=== PATIENT | female | born 1970 | race Caucasian/White ===

== ENCOUNTER → 2019-01-04 | Outpatient (CLI) | payer OTHER ==
--- NOTE | 2019-01-08 10:32 | MM ---
Reason for exam: screening (asymptomatic). Last mammogram was performed 1 year and 11 months ago. History: Took hormonal contraceptives for 3 years. Physical Findings: A clinical breast exam by your physician is recommended on an annual basis and results should be correlated with mammographic findings. MG Screening Mammo w CAD Bilateral CC and MLO view(s) were taken. Prior study comparison: January 20, 2017, bilateral MG 3d screening mammo w/cad. There are scattered fibroglandular densities. No suspicious abnormality. No significant changes when compared with prior studies. ASSESSMENT: Negative, BI-RAD 1 RECOMMENDATION: Routine screening mammogram of both breasts in 1 year.
== END | disposition home or self-care (01) ==
LOC: RADMAMWWP 15:45
PROVIDERS: ATTEND Family Medicine
DX: Z12.31 Encounter for screening mammogram for malignant neoplasm of breast (principal)
CPT/HCPCS: 77067

== ENCOUNTER → 2020-01-25 | Outpatient (CLI) | payer OTHER ==
--- NOTE | 2020-01-27 10:23 | US ---
EXAMINATION TYPE: US abdomen complete DATE OF EXAM: 01/25/2020 COMPARISON: NONE CLINICAL HISTORY: R94.5 Elevated Liver Enzymes. abn labs, no symptoms EXAM MEASUREMENTS: Liver Length: 19.4 cm Gallbladder Wall: 0.2 cm CBD: 0.5 cm Spleen: 10.3 cm Right Kidney: 10.7 x 4.6 x 4.9 cm Left Kidney: 10.9 x 5.1 x 5.8 cm Pancreas: wnl Liver: enlarged and difficult to penetrate Gallbladder: wnl Evidence for sonographic Connor's sign: no CBD: wnl Spleen: wnl Right Kidney: wnl Left Kidney: wnl Upper IVC: wnl Abd Aorta: wnl IMPRESSION: 1. Hepatomegaly with mild fatty infiltration.
== END | disposition home or self-care (01) ==
LOC: RADUSWWP 08:15
PROVIDERS: ATTEND Family Medicine
DX: R16.0 Hepatomegaly, not elsewhere classified (principal); K76.0 Fatty (change of) liver, not elsewhere classified
CPT/HCPCS: 76700

== ENCOUNTER → 2020-04-14 | Outpatient (CLI) | payer OTHER ==
--- NOTE | 2020-04-16 08:10 | MM ---
Reason for exam: screening (asymptomatic). Last mammogram was performed 1 year and 3 months ago. History: Patient is nulliparous. Took hormonal contraceptives for 3 years. Physical Findings: A clinical breast exam by your physician is recommended on an annual basis and results should be correlated with mammographic findings. MG 3D Screening Mammo W/Cad Bilateral CC, MLO, and XCCL view(s) were taken. Prior study comparison: January 04, 2019, bilateral MG screening mammo w CAD. January 20, 2017, bilateral MG 3d screening mammo w/cad. There are scattered fibroglandular densities. No significant changes when compared with prior studies. ASSESSMENT: Benign, BI-RAD 2 RECOMMENDATION: Routine screening mammogram of both breasts in 1 year.
== END ==
LOC: RADMAMWWP 15:52
PROVIDERS: ATTEND Family Medicine
DX: Z12.31 Encounter for screening mammogram for malignant neoplasm of breast (principal)
CPT/HCPCS: 77063; 77067

== ENCOUNTER → 2021-04-15 | Outpatient (CLI) | payer OTHER ==
--- NOTE | 2021-04-16 14:45 | MM ---
Reason for exam: screening (asymptomatic). Last mammogram was performed 1 year ago. History: Patient is nulliparous. Took hormonal contraceptives for 3 years. Physical Findings: A clinical breast exam by your physician is recommended on an annual basis and results should be correlated with mammographic findings. MG 3D Screening Mammo W/Cad Bilateral CC and MLO view(s) were taken. XCCL view(s) were taken of the left breast. Prior study comparison: April 14, 2020, bilateral MG 3d screening mammo w/cad. January 04, 2019, bilateral MG screening mammo w CAD. There are scattered fibroglandular densities. No significant changes when compared with prior studies. ASSESSMENT: Benign, BI-RAD 2 RECOMMENDATION: Routine screening mammogram of both breasts in 1 year.
== END | disposition home or self-care (01) ==
LOC: RADMAMWWP 16:05
PROVIDERS: ATTEND Family Medicine
DX: Z12.31 Encounter for screening mammogram for malignant neoplasm of breast (principal)
CPT/HCPCS: 77063; 77067

== ENCOUNTER → 2021-11-11 | Outpatient (CLI) | payer OTHER ==
--- NOTE | 2021-11-11 16:14 | XR ---
EXAMINATION TYPE: XR hand complete RT DATE OF EXAM: 11/11/2021 COMPARISON: 10/01/2021 HISTORY: Strain and pain across metacarpals TECHNIQUE: 3 view right hand FINDINGS: No acute fractures or dislocations are evident. Mild diffuse joint space narrowing is prese nt. A couple of small smooth bordered calcifications are at the distal interphalangeal joint space of the right index finger, present previously. Soft tissues appear normal. Significant soft tissue swel ling is not evident. There is some subtle prominence over the dorsal distal metacarpal region on the lateral view. IMPRESSION: 1. No acute osseous abnormality. 2. Diffuse degenerative joint changes.
== END | disposition home or self-care (01) ==
LOC: RADXRMAIN 15:51
PROVIDERS: ATTEND Emergency Medicine
DX: M19.041 Primary osteoarthritis, right hand (principal)

== ENCOUNTER 2022-02-26 11:40 | Day surgery (SDC) | payer OTHER ==
[2022-02-23 16:06] VITALS: BMI 39.1
[~2022-02-26 11:40] MED LIST: LACTATED RINGERS 1,000 ML IV SCH
[2022-02-26 13:17] VITALS: TEMP 96.4
[2022-02-26] MEDS ORDERED: MIDAZOLAM 2 MG/2 ML VIAL ONE (13:58)
[2022-02-26] MEDS ORDERED: LIDOCAINE 2% INJ 20 MG/ML (2 ML VIAL) ONE (13:58)
[2022-02-26] MEDS ORDERED: PROPOFOL 10 MG/ML 20 ML VIAL IV ONE (13:58)
--- NOTE | 2022-02-26 14:21 | P.PCN ---
Date of Procedure: 02/26/22 Procedure(s) Performed: BRIEF HISTORY: Patient is a 51-year-old pleasant white female scheduled for an elective colonoscopy as a part of screening for colon cancer. PROCEDURE PERFORMED: Colonoscopy. PREOPERATIVE DIAGNOSIS: Screening for colon cancer. IV sedation per Anesthesia. PROCEDURE: After informed consent was obtained, the patient, was brought into the endoscopy unit. IV sedation was administered by Anesthesia under continuous monitoring. Digital rectal examination was normal. Initially the Olympus CF-160 flexible video colonoscope was then inserted in the rectum, gradually advanced into the cecum without any difficulty. Careful examination was performed as the scope was gradually being withdrawn. Ileocecal valve and the appendiceal orifice were visualized and appeared normal. Prep was excellent. Mucosa of the cecum, ascending colon, transverse colon, descending colon, sigmoid colon, and rectum appeared normal. Scattered sigmoid diverticulosis. Retroflexion was performed in the rectum and no lesions were seen. The patient tolerated the procedure well. IMPRESSION: Normal-appearing colon from rectum to cecum with no evidence of colorectal neoplasia . Scattered sigmoid diverticulosis. RECOMMENDATIONS: Findings of this examination were discussed with the patient less her family. She was advised to have a repeat screen colonoscopy in 10 years..
[2022-02-26 14:25] VITALS: RESP 16
[2022-02-26 14:38] VITALS: BP 140/96; PULSE 93
== END 2022-02-26 14:59 | disposition home or self-care (01) ==
LOC: ORWHC2ENDO 11:40
PROVIDERS: ATTEND Internal Medicine Gastroenterology
DX: Z12.11 Encounter for screening for malignant neoplasm of colon (principal); K57.30 Diverticulosis of large intestine without perforation or abscess without bleeding; I10 Essential (primary) hypertension; J45.909 Unspecified asthma, uncomplicated; Z79.51 Long term (current) use of inhaled steroids; E07.9 Disorder of thyroid, unspecified; Z79.890 Hormone replacement therapy; F41.9 Anxiety disorder, unspecified; K75.9 Inflammatory liver disease, unspecified; Z79.1 Long term (current) use of non-steroidal anti-inflammatories (NSAID); Z79.891 Long term (current) use of opiate analgesic; Z79.899 Other long term (current) drug therapy
CPT/HCPCS: 45378; J2250; J2704; J2001; 81025

== ENCOUNTER → 2023-03-03 | Outpatient (CLI) | payer OTHER ==
--- NOTE | 2023-03-04 20:31 | MM ---
Reason for Exam: Screening (asymptomatic). Last mammogram was performed 1 year(s) and 10 month(s) ago. Patient History: Menarche at age 16. Patient has no children. Postmenopausal. Patient used Hormonal Contraceptives for 3 years. Risk Values: Maranda 5 year model risk: 1.0%. NCI Lifetime model risk: 9.1%. Prior Study Comparison: 01/04/2019 Bilateral Screening Mammogram, [facility]. 04/14/2020 Bilateral Screening Mammogram, [facility]. 04/15/2021 Bilateral Screening Mammogram, [facility]. Tissue Density: There are scattered fibroglandular densities. Findings: Analyzed By CAD. There is no suspicious group of microcalcifications or new suspicious mass in either breast. Overall Assessment: Negative, BI-RAD 1 Management: Screening Mammogram of both breasts in 1 year. . Patient should continue monthly self-breast exams. A clinical breast exam by your physician is recommended on an annual basis. This exam should not preclude additional follow-up of suspicious palpable abnormalities. Note on Maranda scores and lifetime risk: 1. A Maranda score greater than 3% is considered moderate risk. If this is the case, consider specialist referral to assess eligibility for a risk reducing agent. 2. If overall lifetime risk for the development of breast cancer is 20% or higher, the patient may qualify for future screening with alternating mammogram and breast MRI. Electronically signed and approved by: Gabriel Aparicio M.D. Radiologist
== END | disposition home or self-care (01) ==
LOC: RADMAMWWP 16:05
PROVIDERS: ATTEND Family Medicine
DX: Z12.31 Encounter for screening mammogram for malignant neoplasm of breast (principal); Z78.0 Asymptomatic menopausal state
CPT/HCPCS: 77063; 77067